=== PATIENT | male | born 2005 | race Caucasian/White ===

== ENCOUNTER 2024-04-01 18:47 | Emergency (ER) | payer OTHER, SELFPAY ==
[2024-04-01 18:59] VITALS: BP 127/79; PULSE 80; RESP 16; TEMP 36.2; O2SAT 99; BMI 20.8
[2024-04-01 19:03] VITALS: BP 129/77; PULSE 68; RESP 18; O2SAT 99
--- NOTE | 2024-04-01 19:31 | ED_ITS ---
HPI - General Adult General Chief complaint: Laceration/Wound Stated complaint: Lac R hand Time Seen by Provider: 04/01/24 19:01 Source: patient Mode of arrival: ambulatory Limitations: no limitations History of Present Illness HPI narrative: 18-year-old male presenting to the ER after suffering lacerations to the 3rd 4th and 5th digits of the right hand. He was stacking sheet metal at home when they slid, patient tried to grab them, lacerating his fingers. No other injuries. Lacerations occurred approximately 8 hours ago. Tetanus shot was updated in 2016. Related Data Previous Rx's ?Medication ?Instructions ?Recorded amoxicillin 875 mg-potassium 1 tab PO BID #10 tabs 04/01/24 clavulanate 125 mg tablet Allergies Allergy/AdvReac Type Severity Reaction Status Date / Time No Known Drug Allergies Allergy Verified 04/01/24 19:03 Review of Systems Status of ROS: Reports: 6 or more systems reviewed and unremarkable except as noted in History and below Exam Narrative: Exam Narrative: Well-nourished well-developed patient in no acute distress. Alert and oriented. Answers questions appropriately. Mood and affect are appropriate. Thoughts are goal oriented and rational. No tangential or magical thinking noted. Patient speaks in full sentences without needing to catch his breath. HEENT: Normocephalic atraumatic. Pupils are equally round reactive to light. Extraocular muscles are intact. Conjunctivae are moist without any icterus noted. Moist mucous membranes. Extremities: Patient has a proximally 1 cm laceration on the palmar surface of the 3rd 4th and 5th digits of the right hand. Laceration penetrates through the epidermis and dermis, does not penetrate through the subcutaneous tissue. There are no bones or tendons visible. He has full range of motion of the fingers. Const: Vital Signs, click to edit/add: Vital Signs - 24 hr 04/01/24 18:59 Temperature 97.2 F L Pulse Rate [Left P ulse Oximeter] 80 Respiratory Rate 16 Blood Pressure [Ri ght Upper Arm] 127/79 Pulse Oximetry 99 Oxygen Delivery Me thod Room Air Course Course ED Course: Fingers were cleaned in the usual sterile manner and local anesthesia was done with 2% lidocaine. Patient received 3 sutures on the 3rd digit with 3-0 Ethilon, 4 on the 4th digit and 3 on the 5th digit. Vital Signs Vital signs: Initial Vital Signs Temperature 97.2 F L 06/24/24 18:59 Temperature Source Temporal Artery Scan 04/01/24 18:59 Pulse Rate 80 04/01/24 18:59 Pulse Rhythm Regular 04/01/24 18:59 Pulse Strength 3+ Normal 04/01/24 18:59 Respiratory Rate 16 04/01/24 18:59 Blood Pressure 127/79 04/01/24 18:59 Blood Pressure Mean 95 04/01/24 18:59 Blood Pressure Position Sitting 04/01/24 18:59 Pulse Oximetry 99 04/01/24 18:59 Oxygen Delivery Method Room Air 04/01/24 18:59 Vital Signs Temperature 97.2 F L 04/01/24 18:59 Pulse Rate 80 04/01/24 18:59 Respiratory Rate 16 04/01/24 18:59 Blood Pressure 127/79 04/01/24 18:59 Pulse Oximetry 99 04/01/24 18:59 Oxygen Delivery Method Room Air 04/01/24 18:59 Temperature 97.2 F L 04/01/24 18:59 Pulse Rate 80 04/01/24 18:59 Respiratory Rate 16 04/01/24 18:59 Blood Pressure 127/79 04/01/24 18:59 Pulse Oximetry 99 04/01/24 18:59 Oxygen Delivery Method Room Air 04/01/24 18:59 Medical Decision Making MDM Narrative Medical decision making narrative: 18-year-old male lacerations to the fingers, treated per above. Given the duration since the lacerations occurred , will put the patient on prophylactic antibiotics. Discharge Plan Discharge Clinical Impression: Laceration Patient Disposition: Home, Self-Care Condition: Improved Additional Instructions: Keep wound clean and dry. Do not soak such as taking baths, swimming or doing dishes. Follow-up in approximately 1 week for suture removal with your primary care provider. Watch for signs and symptoms of infection including increasing redness of the area, purulent drainage, or fever. If this occurs follow-up right away with your doctor or return to the ER. This will likely be avoided however since you will be on oral antibiotics. Okay to start antibiotics tomorrow morning. Prescriptions: New amoxicillin-pot clavulanate 875-125 mg tablet 1 tab PO BID Qty: 10 0RF Follow Up/Referrals: Marlon Rhodes MD [Primary Care Provider] - Stand Alone Forms: [facility] Info Instructions
[2024-04-01] MEDS: lidocaine HCL 2 % MULTIDOSE 20 ML VIAL INJECTION (19:47)
== END 2024-04-01 19:55 | disposition home or self-care (01) ==
LOC: ED 19:54
PROVIDERS: Emergency Provider Family Medicine
DX: S61.411A Laceration without foreign body of right hand, initial encounter (principal); W26.8XXA Contact with other sharp object(s), not elsewhere classified, initial encounter
CPT/HCPCS: 12001; 99283; 99284